=== PATIENT | female | born 1930 | race Caucasian/White ===

== ENCOUNTER 2020-04-08 22:54 | Inpatient (IN) | payer MEDICARE, OTHER ==
[2020-04-08 23:47] LABS: PTT 31.4 sec (22.9-36.1); Prothrombin Time 13.5 sec (12.0-14.7)
[2020-04-09] MEDS ORDERED: hydrALAZINE 20 MG/ML VIAL SLOW IVP PRN (00:09)
[2020-04-09] MEDS ORDERED: Acetaminophen 325 MG TAB PO PRN (00:09)
[2020-04-09] MEDS ORDERED: Labetalol HCl 100 MG/20 ML VIAL SLOW IVP PRN (00:09)
[2020-04-09] MEDS ORDERED: diphenhydrAMINE 50 MG CAP PO PRN (00:09)
[2020-04-09] MEDS ORDERED: Promethazine 25 MG TAB PO PRN (00:09)
[2020-04-09] MEDS ORDERED: Mag-Al 1200 mg/1200 mg/30 ML UDCUP PO PRN (00:09)
[2020-04-09] MEDS ORDERED: Docusate 100 MG CAP PO PRN (00:09)
[2020-04-09] MEDS ORDERED: Sodium Chloride 0.9% 1,000 ML IV SCH (00:15)
--- NOTE | 2020-04-09 00:55 | CON ---
DATE OF CONSULTATION: 04/08/2020 CHIEF COMPLAINT: Fall with neck pain. HISTORY OF PRESENT ILLNESS: Ms. Loera is an 89-year-old female. She was dancing with her and they tripped over each other's feet and fell. She was seen at [facility] ED and was transferred to [facility] ED due to a subarachnoid hemorrhage and a subdural hematoma found on head CT. She denies any vision or weakness in any of her extremities. When I saw her, she was awake, alert, in no acute distress. She has free active range of motion in all extremities. No focal motor weakness. No reflex asymmetry. REVIEW OF SYSTEMS: CONSTITUTIONAL: Denies fever or chills. ENT: Denies vision or hearing changes. CARDIAC: Denies chest pain, shortness of breath, or diaphoresis. PULMONARY: Denies shortness of breath, cough, or hemoptysis. GI: Denies abdominal pain, nausea, vomiting, diarrhea, or change in stool formation and consistency. : Denies trouble with urination, frequency of urination, or bloody urine. SKIN: Denies skin rash, bruising, bleeding, or skin masses. MUSCULOSKELETAL: As per history of present illness. NEUROLOGIC: As per history of present illness. PSYCHOLOGIC: Denies anxiety, depression, or behavior changes. PAST MEDICAL HISTORY: Hypertension. SOCIAL HISTORY: Denies nicotine, alcohol or illicit drugs. ALLERGIES: SULFA. CURRENT MEDICATIONS: Baby aspirin, Atorvastatin 10 mg, Potassium 10 mg PHYSICAL EXAMINATION: VITAL SIGNS: BP 176/62, pulse 88, respiratory rate 18, and temperature 98.6. HEENT: Pupils are equal. Extraocular movements are intact. NECK: Soft and supple. No masses are noted. Range of motion is intact and slightly painful. NEUROLOGIC: Awake, alert, and oriented x3. Memory, attention, and fund of knowledge normal. Language is normal. Cranial nerves normal. Cranial nerves II through XII grossly intact. Upper extremities, she has 5/5 strength bilateral in her deltoids, biceps, triceps, wrist extension, finger extension, and finger intrinsics. Sensation is equal bilaterally. Reflexes are symmetric. Lower extremities, 5/5 bilateral strength in her iliopsoas, quadriceps, hamstrings, anterior tib, EHL, and gastrocnemius. There is no area of dermatomal sensory loss. The reflexes are symmetric. The toes are downgoing. GCS 15. IMAGING: CT Head, SAH, SDH. CT Cervical Spine, no acute fractures. ASSESSMENT: 1. Subarachnoid hemorrhage. 2. Subdural hematoma. 3. Neck pain. PLAN: Repeat CT of the brain tomorrow morning. If the scan shows improvement or no change, we will transfer care to Medicine Service. Supportive care. No intracranial surgery at this time. We will have her follow up in 2 to 3 weeks in our clinic and repeat the scan prior to the visit. Job ID: [id number] MTDD
[2020-04-09 02:34] VITALS: BMI 27.1
[2020-04-09] MEDS ORDERED: Atorvastatin Calcium 10 MG TAB PO SCH (09:00)
[2020-04-09] MEDS ORDERED: Metoprolol Tartrate 25 MG TAB PO SCH (09:00)
[2020-04-09] MEDS ORDERED: Potassium Chloride 10 MEQ TAB PO SCH (09:00)
[2020-04-09] MEDS ORDERED: levETIRAcetam 500 MG TAB PO SCH (09:00)
--- NOTE | 2020-04-09 09:56 | CT ---
PRELIMINARY REPORT/[facility]/EMERGENCY AFTER HOURS PROCEDURE: EXAM: CT Head Without Intravenous Contrast. CLINICAL HISTORY: F/U SAH Pt was canned at another facility, prior images sent for comparison un geovany. Patient ID number for comparison images: [id number] TECHNIQUE: Axial computed tomography images of the head/brain without intravenous contrast. COMPARISON: April 08, 2020 FINDINGS: BRAIN: Trace subarachnoid blood at the left parietal convexity as well as a thin interhemispheric sub dural hematoma are again noted. The both have improved slightly in the interval. There is a small s ubdural collection on the left frontal region more conspicuous on the current study than on prior. VENTRICLES: No hydrocephalus. ORBITS: The orbits are unremarkable. SINUSES AND MASTOIDS: The paranasal sinuses and mastoid air cells are clear. SOFT TISSUES: No significant facial or scalp soft tissue swelling evident. No radiopaque foreign body is seen. BONES: No acute skull fracture. IMPRESSION: Overall, not a significant change in the interval one way or another. Minimal extra-axia l hemorrhage without acute intraparenchymal abnormality, significant mass-effect, or midline shift. ELECTRONICALLY SIGNED BY: Niles Fernandez MD Apr 09, 2020 5:23:54 AM CDT FINAL REPORT EMERGENT AFTER HOURS CT OF BRAIN PERFORMED WITHOUT CONTRAST ENHANCEMENT: HISTORY: Followup of subarachnoid blood. COMPARISON: 04/08/2020 exam. FINDINGS: There is generalized ventricular and sulcal prominence. The subarachnoid blood in the left posterior frontal region is still present. I think it is slightly improved as compared to the prior exam. Th e right posterior frontal small area of subarachnoid blood also appears improved. Also, the changes along the falx are somewhat less prominent than on the prior exam. No shift of midline structures. There is a very small left frontal subdural collection more difficult to appreciate on the previous e xam, probably not changed since the prior study. IMPRESSION: 1. Slight interval improvement to the subarachnoid blood over the right and left posterior frontal r egions. Subdural blood along the falx is less prominent. A small left frontal subdural collection i s present. It was much more difficult to see on the prior examination, probably just related to the slight differences in slice position. I doubt that this has significantly changed. 2. This report is in agreement with the temporary report issued by [facility]. POS: OFF
--- NOTE | 2020-04-09 10:29 | PRG ---
DATE OF SERVICE: 04/09/2020 I personally interviewed and examined the patient, agree with documentation of Niles Nielsen PA-C dated 04/09/2020. Briefly, Terri oLera is very pleasant 89-year-old woman, who was dancing with her to a [employer] yesterday evening when their feet got tangled and they both fell. Both she and her hit her head. She was evaluated at [facility], where a CT examination of brain revealed a tiny amount of traumatic subarachnoid blood and a very small falcine subdural hematoma. She was transferred from [facility] ([facility]) to [facility] for observation overnight. In the overnight, she felt well. She has a bit of headache, but her vital signs have been stable. I do not see any fevers recorded and her blood pressures have been in the 120s to 140s with the exception of one reading in the 170s. This morning, she is awake. She has already been to the bathroom. She is moving all her extremities and she is speaking clearly. I do not find any lateralizing motor or sensory deficits or any cranial neuropathy. Her followup CT scan this morning shows resolving subarachnoid hemorrhage with a less prominent blood in the sulci over the convexities. Even the small amount of blood near the falx is decreasing in size. There is no mass effect. Ms. Loera is safe for activities of daily living. She can be discharged today. Followup CT scan should be done in 3 to 4 weeks to confirm complete resolution of the blood products. A followup phone call will be made after the scan. (15 min) Job ID: [id number] MTDD
[2020-04-09 12:14] VITALS: BP 109/53; TEMP 98.9
[2020-04-09 13:27] LABS: SARS-CoV-2 MS2 Positive; SARS-CoV-2 N Gene Negative; SARS-CoV-2 S Gene Negative; SARS-CoV-2 by NAA Not Detected (NotDetected); SARS-CoV-2 orf1ab Negative
== END 2020-04-09 12:10 | disposition home or self-care (01) | DRG 87 ==
LOC: ERS 22:54 → 2SE 04-09 00:16
PROVIDERS: ADMIT Neurological Surgery; ATTEND Neurological Surgery
DX: S06.6X1A Traumatic subarachnoid hemorrhage with loss of consciousness of 30 minutes or less, initial encounter (principal); S06.5X1A Traumatic subdural hemorrhage with loss of consciousness of 30 minutes or less, initial encounter; Z20.828 Contact with and (suspected) exposure to other viral communicable diseases; W01.0XXA Fall on same level from slipping, tripping and stumbling without subsequent striking against object, initial encounter; I10 Essential (primary) hypertension; Z98.890 Other specified postprocedural states; Z90.710 Acquired absence of both cervix and uterus; Z88.2 Allergy status to sulfonamides; Z79.82 Long term (current) use of aspirin; Z88.1 Allergy status to other antibiotic agents; R40.2362 Coma scale, best motor response, obeys commands, at arrival to emergency department; R40.2142 Coma scale, eyes open, spontaneous, at arrival to emergency department; R40.2252 Coma scale, best verbal response, oriented, at arrival to emergency department
CPT/HCPCS: 36415; 70450; 85610; 85730; 87635; 99285; G0390; U0003

== ENCOUNTER 2020-04-12 09:48 | Emergency (ER) | payer MEDICARE, OTHER ==
[~2020-04-12 09:48] MED LIST: Iopamidol-370 76% 500 ML 1 ML ONE
[2020-04-12 10:58] LABS: #Eosinphils 0.2 thou/uL (0.0-0.7); #Lymphocytes 1.2 thou/uL (1.20-3.40); #Monocytes 0.5 thou/uL (0.11-0.59); #Neutrophils 4.8 thou/uL (1.40-6.50); %Basophils 0.5 % (0.0-1.0); %Eosinophils 2.4 % (0.0-10.0); %Lymphocytes 17.2 % (21.0-51.0); %Neutrophils 71.8 % (42.0-75.0); Hemoglobin 14.6 g/dL (12.0-16.0); Mean Corpuscular HGB CONC 33.7 g/dL (32.0-36.0); Mean Corpuscular Hemoglobin 29.1 pg (27.0-31.0); Mean Corpuscular Volume 86.3 fL (78.0-98.0); Mean Platelet Volume 7.5 fL (7.4-10.4); Platelet Count 196 thou/uL (130-400); RBC Distribution Width 12.9 % (11.5-14.5); Red Blood Cell (RBC) Count 5.01 mill/uL (4.20-5.40); White Blood Cell (WBC) Count 6.7 thou/uL (4.8-10.8)
[2020-04-12] MEDS ORDERED: Ondansetron ODT 4 MG TAB ONE (11:03)
[2020-04-12 11:36] LABS: ALT (SGPT) 14 U/L (8-55); AST (SGOT) 23 U/L (5-34); Albumin 4.2 g/dL (3.4-4.8); Alkaline Phosphatase 95 U/L (40-110); Anion Gap 17 mmol/L (10-20); BUN (Urea Nitrogen) 17 mg/dL (9.8-20.1); Bilirubin, Total 1.6 mg/dL (0.2-1.2); Calc. Creatinine Clearance 0 mL/min (70-130); Calcium 9.3 mg/dL (7.8-10.44); Carbon Dioxide 22 mmol/L (23-31); Chloride 102 mmol/L (98-107); Estimated GFR-MDRD 62; Globulin 2.9 g/dL (2.4-3.5); Glucose 98 mg/dL (83-110); Lipase 29 U/L (8-78); Potassium 4.2 mmol/L (3.5-5.1); Protein, Total 7.1 g/dL (6.0-8.3); Sodium 137 mmol/L (136-145)
--- NOTE | 2020-04-12 12:32 | CT ---
CT BRAIN WITHOUT CONTRAST: HISTORY: Nausea, traumatic subchorionic subarachnoid hemorrhage noted on exam of 04/09/2020. FINDINGS: There has been interval resolution of the small areas of acute subarachnoid and subdural hemorrhage n oted on the previous study of 04/09/2020. No evidence of acute infarct, hemorrhage, midline shift, or abnormal extraaxial fluid collections is seen. The ventricular size is stable and the basilar cisterns patent. The bony calvarium is intact. The visualized paranasal sinuses and mastoid air cells are well aerated. IMPRESSION: No CT evidence of acute intracranial process. POS: AH
[2020-04-12 12:54] LABS: Bilirubin Negative (Negative); Blood, Urine Negative (Negative); Clarity Clear (Clear); Glucose, Urine (Dipstick) Normal (Negative); Ketone, Urine Negative (Negative); Leukocyte 500 Leu/uL (Negative); Nitrite 1+ (Negative); Protein, Urine (Dipstick) Negative (Neg-Trace); Squamous Epithelial 0-3 HPF (0-3); Urobilinogen Normal mg/dL (Less than 2); WBC/HPF Greater than 50 HPF (0-3); pH, Urine 5.5 (5.0-9.0)
[2020-04-12 12:56] LABS: Bacteria/HPF 3+ HPF (None Seen)
--- NOTE | 2020-04-12 13:51 | CT ---
CT ABDOMEN AND PELVIS WITH IV CONTRAST: Date: 04/12/2020 HISTORY: Abdominal pain. COMPARISON: None. FINDINGS: There are dependent changes in the lung bases. 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 No calcified gallstones are seen. The liver, spleen, pancreas, adrenal glands, and kidne ys are normal. 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 No free air, free fluid, or lymphadenopathy is seen in the abdomen or pelvis. The small bowel loops a re not abnormally dilated. There is sigmoid diverticulosis without diverticulitis. There are vascular calcifications without evidence of aneurysmal dilatation of the abdominal aorta. The patient is post hysterectomy. There are degenerative changes in the spine. No abnormally dilated appendix is seen. 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 3. Sigmoid diverticulosis without diverticulitis. POS: AH
== END 2020-04-12 13:55 | disposition home or self-care (01) ==
LOC: ERS 09:48
DX: N12 Tubulo-interstitial nephritis, not specified as acute or chronic (principal); I10 Essential (primary) hypertension; E78.5 Hyperlipidemia, unspecified; Z79.82 Long term (current) use of aspirin; Z79.899 Other long term (current) drug therapy
CPT/HCPCS: 36415; 70450; 74177; 80053; 81003; 81015; 83690; 85025; Q0162; Q9967

== ENCOUNTER 2020-04-21 14:00 | Outpatient (CLI) | payer MEDICARE, OTHER ==
[~2020-04-21 14:00] MED LIST changes: +Iopamidol 370 76% 100 ML VIAL ONE; -Iopamidol-370 76% 500 ML 1 ML ONE
--- NOTE | 2020-04-21 15:14 | CT ---
CT BRAIN WITH AND WITHOUT CONTRAST: HISTORY:Traumatic subarachnoid hemorrhage COMPARISON:04/12/2020 and 04/09/2020 FINDINGS: There are foci of decreased attenuation in the periventricular white matter, consistent with chronic small vessel ischemic disease. No evidence of acute infarct, hemorrhage, mass, midline shift or abnormal extra-axial fluid collectio ns is seen. The ventricular size is appropriate and the basilar cisterns are patent. The bony calvarium is intact. The visualized paranasal sinuses and mastoid air cells are well aerated. IMPRESSION: No CT evidence of acute intracranial process or mass.
== END 2020-04-21 14:01 | disposition home or self-care (01) ==
LOC: BICCT 14:00
PROVIDERS: ATTEND Family Medicine
DX: S06.6X9A Traumatic subarachnoid hemorrhage with loss of consciousness of unspecified duration, initial encounter (principal)
CPT/HCPCS: 70470; Q9967